=== PATIENT | male | born 1960 | race Caucasian/White ===

== ENCOUNTER 2023-11-24 05:53 | Emergency (ER) | payer MEDICAID ==
[~2023-11-24] VITALS: Ht 188 cm; Wt 95.3 kg
[2023-11-24 13:56] VITALS: BP 135/79; TEMP 98.1; O2SAT 98
== END 2023-11-24 13:57 | disposition home or self-care (01) ==
LOC: ER 05:57
DX: F10.129 Alcohol abuse with intoxication, unspecified (principal); Y90.9 Presence of alcohol in blood, level not specified